=== PATIENT | female | born 1965 | race Caucasian/White ===

== ENCOUNTER 2018-09-06 12:53 | Outpatient (CLI) | payer OTHER ==
[2018-09-06 13:23] LABS: BASOPHILS % 0.5 (0.0-1.5); MEAN CORPUSCULAR HEMOGLOBIN 29.4 pg (28.0-34.0); MONOCYTES % 4.6 % (0.0-11.0); NEUTROPHILS # 4.8 # k/uL (1.4-7.7)
[2018-09-06 13:31] LABS: eGFR (Non-African) > 60
== END 2018-09-06 13:05 ==
LOC: LAB 12:53
PROVIDERS: ATTEND Nurse Practitioner Family
DX: K92.1 Melena (principal)
CPT/HCPCS: 36415; 80053; 85025; 85610